=== PATIENT | female | born 1955 | race African-American/Black ===

== ENCOUNTER 2021-04-14 16:09 | Inpatient (IN) | payer MEDICARE, OTHER ==
[~2021-04-14] VITALS: Ht 157.5 cm; Wt 114.1 kg
[~2021-04-14 16:09] MED LIST: ALBU18HF2 IH; ASPI-1079 PO; ATOR10TA69 PO; BENA20TA10 PO; CHOL50006 PO; HCTZ; HYDR-519 PO; HYDR1TAB4 PO; HYDR25TA PO; LISI-186 PO; LORA-249 PO; LOSA50TA41 PO; NIFE60TA64 PO; OMEP20TA15 PO; TRAM50TA94 PO
[2021-04-14] MEDS ORDERED: SODIUM CHLORIDE 0.9% 1,000 ML IV ONE (19:00)
[2021-04-14] MEDS ORDERED: METOCLOPRAMIDE HCL 10MG/2ML VIAL IV ONE (19:15)
[2021-04-14] MEDS ORDERED: DIPHENHYDRAMINE 50MG/ML VIAL IV ONE (19:15)
[2021-04-14 19:22] LABS: BASOPHILS % 0.9 % (0.0-2.0); EOSINOPHILS % 1.4 % (0.0-5.0); HEMATOCRIT. 39.1 % (36.0-48.0); HEMOGLOBIN. 13.4 g/dL (12.0-16.0); LYMPHOCYTES % 42.2 % (20.0-50.0); MEAN CORPUSCULAR HEMOGLOBIN 30.3 pg (28.0-32.0); MEAN CORPUSCULAR VOLUME 88.4 fL (81.0-99.0); MEAN PLATELET VOLUME 7.9 fl (7.4-10.4); MONOCYTES % 10.4 % (2.0-8.0); NEUTROPHILS % 45.1 % (40.0-76.0); PLATELET 361 x1000/uL (130-400); RED BLOOD CELL COUNT 4.42 mill/uL (4.2-5.4); RED CELL DISTRIBUTION WIDTH 13.3 % (11.6-14.6)
[2021-04-14 19:30] LABS: CHLORIDE 92 mEq/L (98-107)
[2021-04-14] MEDS ORDERED: MAGNESIUM/ALUMINUM HYDROXIDE/SIMETHICONE 30ML UDC PO ONE (22:45)
[2021-04-14] MEDS ORDERED: KETOROLAC 15MG/ML VIAL IV ONE (22:45)
[2021-04-14] MEDS ORDERED: HYDRALAZINE 20MG/ML VIAL IV NR (23:45)
[2021-04-15 01:10] VITALS: BP 150/74
[2021-04-15 04:00] VITALS: BP 97/61
[2021-04-15 08:00] VITALS: BP 164/68
[2021-04-15] MEDS ORDERED: DOCUSATE SODIUM 100MG CAPSULE PO PRN (08:15)
[2021-04-15] MEDS ORDERED: IPRATROPIUM/ALBUTEROL 0.5-3(2.5)MG/3ML NEB HHN PRN (08:15)
[2021-04-15] MEDS ORDERED: HYDRALAZINE 20MG/ML VIAL IV PRN (08:15)
[2021-04-15] MEDS ORDERED: CLONIDINE 0.1MG TABLET PO PRN (08:15)
[2021-04-15] MEDS ORDERED: ONDANSETRON HCL 4MG/2ML INJ IV PRN (08:15)
[2021-04-15] MEDS ORDERED: DIPHENHYDRAMINE 50MG/ML VIAL IV PRN (08:15)
[2021-04-15] MEDS ORDERED: ACETAMINOPHEN 325MG TABLET PO PRN (08:15)
[2021-04-15] MEDS ORDERED: LORAZEPAM 2MG/ML CPJ IV PRN (08:15)
[2021-04-15] MEDS ORDERED: GUAIFENESIN 200MG/10ML SUGAR FREE UDC PO PRN (08:15)
[2021-04-15] MEDS ORDERED: NALOXONE HCL 0.4MG/ML VIAL IV PRN (08:30)
[2021-04-15] MEDS ORDERED: ENOXAPARIN 40MG/0.4ML SYR SUBCUT SCH (09:30)
[2021-04-15 12:00] VITALS: BP 157/79
[2021-04-15 12:25] LABS: CHLORIDE 93 mEq/L (98-107)
[2021-04-15] MEDS: MORPHINE SULFATE 2 MG/ML CPJ (NOT FOR IM USE) IV PRN (12:26)
[2021-04-15] MEDS ORDERED: LISINOPRIL 5MG TABLET PO SCH (13:00)
[2021-04-15] MEDS ORDERED: HYDROCHLOROTHIAZIDE 25MG TABLET PO SCH (13:00)
[2021-04-15] MEDS ORDERED: NIFEDIPINE XL 60MG TAB PO SCH (13:00)
[2021-04-15] MEDS ORDERED: BENAZEPRIL 10MG TABLET PO SCH (13:00)
[2021-04-15] MEDS ORDERED: LOSARTAN POTASSIUM 50 MG TABLET PO SCH (13:00)
[2021-04-15] MEDS ORDERED: ERGOCALCIFEROL 50000UNITS CAPSULE PO SCH (13:00)
[2021-04-15] MEDS: SODIUM CHLORIDE 0.45% 1,000 ML IV SCH (14:17)
[2021-04-15] MEDS: ASPIRIN 81MG TABLET PO SCH (14:25)
[2021-04-15] MEDS: SODIUM CHLORIDE 0.9% INJ 3ML FLUSH IVF SCH ×2 (14:25→21:30)
[2021-04-15] MEDS: OMEPRAZOLE 20MG CAPSULE EXTENDED RELEASE PO SCH (14:26)
[2021-04-15] MEDS: CHOLECALCIFEROL (D3) 1000 UNIT TABLET PO SCH (15:43)
[2021-04-15] MEDS ORDERED: AMLO10TA4 MT (15:46)
[2021-04-15 16:00] VITALS: BP 132/70
[2021-04-15 16:46] LABS: T4 FREE 1.19 ng/dL (0.76-1.46)
[2021-04-15 16:49] LABS: CREATINE KINASE MB FRACTION 1.2 ng/mL (0.5-3.6)
[2021-04-15] MEDS: HYDROCODONE/ACETAMINOPHEN 5/325MG TABLET PO PRN ×2 (17:25→21:30)
[2021-04-15 20:00] VITALS: BP 120/54
[2021-04-15] MEDS: MAGNESIUM/ALUMINUM HYDROXIDE/SIMETHICONE 30ML UDC PO PRN (21:28)
[2021-04-15] MEDS: ATORVASTATIN CALCIUM 10MG TABLET PO SCH (21:29)
[2021-04-15] MEDS: LOSARTAN POTASSIUM 50 MG TABLET PO SCH (21:29)
[2021-04-15] MEDS: ENOXAPARIN 40MG/0.4ML SYR SUBCUT SCH (21:30)
[2021-04-15 23:50] LABS: CREATINE KINASE 78 IU/L (26-192); CREATINE KINASE MB FRACTION < 1.0 ng/mL (0.5-3.6)
[2021-04-16] VITALS (7 sets, daily range): BP systolic 93–133; BP diastolic 51–89
[2021-04-16] MEDS: SODIUM CHLORIDE 0.9% INJ 3ML FLUSH IVF SCH ×3 (05:45→21:26)
[2021-04-16] MEDS: OMEPRAZOLE 20MG CAPSULE EXTENDED RELEASE PO SCH (06:34)
[2021-04-16 06:37] LABS: CHLORIDE 94 mEq/L (98-107)
[2021-04-16 06:56] LABS: BASOPHILS % 0.8 % (0.0-2.0); EOSINOPHILS % 1.3 % (0.0-5.0); HEMATOCRIT. 40.5 % (36.0-48.0); HEMOGLOBIN. 13.3 g/dL (12.0-16.0); LYMPHOCYTES % 45.7 % (20.0-50.0); MEAN CORPUSCULAR HEMOGLOBIN 30.1 pg (28.0-32.0); MEAN CORPUSCULAR VOLUME 91.6 fL (81.0-99.0); MEAN PLATELET VOLUME 9.2 fl (7.4-10.4); MONOCYTES % 10.5 % (2.0-8.0); NEUTROPHILS % 41.7 % (40.0-76.0); PLATELET 228 x1000/uL (130-400); RED BLOOD CELL COUNT 4.43 mill/uL (4.2-5.4); RED CELL DISTRIBUTION WIDTH 13.8 % (11.6-14.6)
[2021-04-16] MEDS: ENOXAPARIN 40MG/0.4ML SYR SUBCUT SCH (09:00)
[2021-04-16] MEDS: HYDROCHLOROTHIAZIDE 25MG TABLET PO SCH (09:00)
[2021-04-16] MEDS: HYDROCODONE/ACETAMINOPHEN 5/325MG TABLET PO PRN ×2 (09:17→21:25)
[2021-04-16] MEDS: LOSARTAN POTASSIUM 50 MG TABLET PO SCH ×2 (09:17→20:42)
[2021-04-16] MEDS: CHOLECALCIFEROL (D3) 1000 UNIT TABLET PO SCH (09:17)
[2021-04-16] MEDS: ASPIRIN 81MG TABLET PO SCH (09:17)
[2021-04-16] MEDS: SODIUM CHLORIDE 0.45% 1,000 ML IV SCH (09:18)
[2021-04-16] MEDS: MAGNESIUM/ALUMINUM HYDROXIDE/SIMETHICONE 30ML UDC PO PRN (17:13)
[2021-04-16] MEDS: ENOXAPARIN 30MG/0.3ML SYR SUBCUT SCH (20:42)
[2021-04-16] MEDS: FAMOTIDINE 20MG TABLET PO SCH (21:25)
[2021-04-16] MEDS: ATORVASTATIN CALCIUM 10MG TABLET PO SCH (21:25)
[2021-04-17] VITALS: BP 140/78
[2021-04-17] MEDS: HYDROCODONE/ACETAMINOPHEN 5/325MG TABLET PO PRN ×4 (01:48→22:15)
[2021-04-17 04:00] VITALS: BP 140/71
[2021-04-17] MEDS: SODIUM CHLORIDE 0.9% INJ 3ML FLUSH IVF SCH ×3 (06:18→21:00)
[2021-04-17] MEDS: SODIUM CHLORIDE 0.45% 1,000 ML IV SCH ×2 (06:18→20:52)
[2021-04-17] MEDS: MORPHINE SULFATE 2 MG/ML CPJ (NOT FOR IM USE) IV PRN ×2 (06:22→13:06)
[2021-04-17 06:42] LABS: EOSINOPHILS % 1.5 % (0.0-5.0); HEMATOCRIT. 36.3 % (36.0-48.0); HEMOGLOBIN. 12.4 g/dL (12.0-16.0); LYMPHOCYTES % 47.1 % (20.0-50.0); MEAN CORPUSCULAR HEMOGLOBIN 30.2 pg (28.0-32.0); MEAN CORPUSCULAR VOLUME 88.7 fL (81.0-99.0); MEAN PLATELET VOLUME 7.6 fl (7.4-10.4); NEUTROPHILS % 41.4 % (40.0-76.0); PLATELET 347 x1000/uL (130-400); RED CELL DISTRIBUTION WIDTH 13.5 % (11.6-14.6)
[2021-04-17 06:52] LABS: CHLORIDE 97 mEq/L (98-107)
[2021-04-17 08:00] VITALS: BP 163/86
[2021-04-17] MEDS: ENOXAPARIN 30MG/0.3ML SYR SUBCUT SCH ×2 (08:28→20:52)
[2021-04-17] MEDS: FAMOTIDINE 20MG TABLET PO SCH ×2 (08:29→20:52)
[2021-04-17] MEDS: ASPIRIN 81MG TABLET PO SCH (08:29)
[2021-04-17] MEDS: HYDROCHLOROTHIAZIDE 25MG TABLET PO SCH (08:29)
[2021-04-17] MEDS: CHOLECALCIFEROL (D3) 1000 UNIT TABLET PO SCH (08:29)
[2021-04-17] MEDS: LOSARTAN POTASSIUM 50 MG TABLET PO SCH ×2 (08:29→20:52)
[2021-04-17 12:00] VITALS: BP 149/79
[2021-04-17 16:00] VITALS: BP 124/69
[2021-04-17 20:38] VITALS: BP 138/80
[2021-04-17] MEDS: ATORVASTATIN CALCIUM 10MG TABLET PO SCH (20:52)
[2021-04-18] VITALS (7 sets, daily range): BP systolic 122–179; BP diastolic 58–93
[2021-04-18] MEDS: HYDROCODONE/ACETAMINOPHEN 5/325MG TABLET PO PRN (04:47)
[2021-04-18] MEDS: SODIUM CHLORIDE 0.9% INJ 3ML FLUSH IVF SCH (05:03)
[2021-04-18 05:35] LABS: BASOPHILS % 0.9 % (0.0-2.0); EOSINOPHILS % 2.3 % (0.0-5.0); HEMATOCRIT. 37.2 % (36.0-48.0); HEMOGLOBIN. 12.4 g/dL (12.0-16.0); LYMPHOCYTES % 51.3 % (20.0-50.0); MEAN CORPUSCULAR HEMOGLOBIN 29.9 pg (28.0-32.0); MEAN CORPUSCULAR VOLUME 89.9 fL (81.0-99.0); MEAN PLATELET VOLUME 7.7 fl (7.4-10.4); MONOCYTES % 11.9 % (2.0-8.0); NEUTROPHILS % 33.6 % (40.0-76.0); PLATELET 321 x1000/uL (130-400); RED BLOOD CELL COUNT 4.13 mill/uL (4.2-5.4); RED CELL DISTRIBUTION WIDTH 13.4 % (11.6-14.6)
[2021-04-18 06:24] LABS: CHLORIDE 96 mEq/L (98-107)
[2021-04-18] MEDS: ENOXAPARIN 30MG/0.3ML SYR SUBCUT SCH ×2 (09:00→20:23)
[2021-04-18] MEDS ORDERED: METOPROLOL TARTRATE 25MG TABLET PO SCH (09:00)
[2021-04-18] MEDS ORDERED: METOPROLOL TARTRATE 50MG TABLET PO SCH (09:00)
[2021-04-18] MEDS: MAGNESIUM/ALUMINUM HYDROXIDE/SIMETHICONE 30ML UDC PO PRN ×2 (10:13→20:39)
[2021-04-18] MEDS: HYDROCHLOROTHIAZIDE 25MG TABLET PO SCH (10:13)
[2021-04-18] MEDS: FAMOTIDINE 20MG TABLET PO SCH ×2 (10:14→20:22)
[2021-04-18] MEDS: LOSARTAN POTASSIUM 50 MG TABLET PO SCH ×2 (10:14→20:23)
[2021-04-18] MEDS: CHOLECALCIFEROL (D3) 1000 UNIT TABLET PO SCH (10:14)
[2021-04-18] MEDS: MORPHINE SULFATE 2 MG/ML CPJ (NOT FOR IM USE) IV PRN ×3 (10:15→20:35)
[2021-04-18] MEDS: ASPIRIN 81MG TABLET PO SCH (10:16)
[2021-04-18] MEDS ORDERED: NITROGLYCERIN SPRAY/4.9GM CAN TL ONE (10:45)
[2021-04-18] MEDS ORDERED: LIDOCAINE HCL 1% 30ML VIAL (10MG/ML) ONE (13:53)
[2021-04-18] MEDS ORDERED: IOHEXOL-350 100 ML BOTTLE ONE (15:20)
[2021-04-18] MEDS: ATORVASTATIN CALCIUM 10MG TABLET PO SCH (20:22)
[2021-04-18] MEDS: SODIUM CHLORIDE 0.45% 1,000 ML IV SCH (20:22)
[2021-04-18] MEDS: METOPROLOL TARTRATE 50MG TABLET PO SCH (20:23)
[2021-04-19] VITALS: BP 102/63
[2021-04-19] MEDS: MORPHINE SULFATE 2 MG/ML CPJ (NOT FOR IM USE) IV PRN (01:25)
[2021-04-19 04:00] VITALS: BP 158/76
[2021-04-19] MEDS: SODIUM CHLORIDE 0.9% INJ 3ML FLUSH IVF SCH (06:27)
[2021-04-19 08:04] VITALS: BP 157/70
[2021-04-19] MEDS: ENOXAPARIN 30MG/0.3ML SYR SUBCUT SCH (09:00)
[2021-04-19] MEDS: HYDROCHLOROTHIAZIDE 25MG TABLET PO SCH (09:17)
[2021-04-19] MEDS: LOSARTAN POTASSIUM 50 MG TABLET PO SCH (09:17)
[2021-04-19] MEDS: CHOLECALCIFEROL (D3) 1000 UNIT TABLET PO SCH (09:17)
[2021-04-19] MEDS: ASPIRIN 81MG TABLET PO SCH (09:17)
[2021-04-19] MEDS: FAMOTIDINE 20MG TABLET PO SCH (09:18)
[2021-04-19] MEDS: METOPROLOL TARTRATE 50MG TABLET PO SCH (09:19)
[2021-04-19] MEDS: HYDROCODONE/ACETAMINOPHEN 5/325MG TABLET PO PRN (09:31)
[2021-04-19 12:00] VITALS: BP 142/76
[2021-04-19 15:02] VITALS: BP 149/83
[2021-04-19 16:00] VITALS: BP 149/83
[2021-04-19] MEDS ORDERED: HYDRALAZINE HCL 50MG TABLET PO SCH (21:00)
== END 2021-04-19 18:15 | disposition home health service (06) | DRG 199 ==
LOC: ER 16:09 → 6WST 23:48 → ENRESERV 04-15 00:37
PROVIDERS: ADMIT Internal Medicine; ATTEND Internal Medicine
PROC: 02HV33Z Insertion of Infusion Device into Superior Vena Cava, Percutaneous Approach (ICD-10-PCS; principal; 2021-04-18)
PROC: B518ZZA Fluoroscopy of Superior Vena Cava, Guidance (ICD-10-PCS; 2021-04-18)
PROC: B548ZZA Ultrasonography of Superior Vena Cava, Guidance (ICD-10-PCS; 2021-04-18)
DX: I16.0 Hypertensive urgency (principal); E87.1 Hypo-osmolality and hyponatremia; I11.9 Hypertensive heart disease without heart failure; I95.9 Hypotension, unspecified; M94.0 Chondrocostal junction syndrome [Tietze]; R10.13 Epigastric pain; E66.01 Morbid (severe) obesity due to excess calories; E86.0 Dehydration; K21.9 Gastro-esophageal reflux disease without esophagitis; M17.11 Unilateral primary osteoarthritis, right knee; F41.9 Anxiety disorder, unspecified; Z20.822 Contact with and (suspected) exposure to COVID-19; R07.9 Chest pain, unspecified; E78.5 Hyperlipidemia, unspecified; G43.909 Migraine, unspecified, not intractable, without status migrainosus; M54.30 Sciatica, unspecified side; Z98.51 Tubal ligation status; Z68.42 Body mass index [BMI] 45.0-49.9, adult; Z79.899 Other long term (current) drug therapy; Z79.82 Long term (current) use of aspirin; R79.89 Other specified abnormal findings of blood chemistry; R77.8 Other specified abnormalities of plasma proteins
CPT/HCPCS: 36415; 36573; 71045; 75571; 76705; 80048; 80053; 80061; 82550; 82553; 83036; 83880; 84439; 84443; 84484; 85025; 85379; 87426; 93005; 93306; 97162; 99285; C1725; C1893; J0360; J1200; J1650; J1885; J2270; J2405; J2765; J3490; J7030; Q9967

== ENCOUNTER 2021-04-24 04:05 | Emergency (ER) | payer MEDICARE, OTHER ==
[~2021-04-24] VITALS: Ht 162.6 cm; Wt 100.0 kg
[~2021-04-24 04:05] MED LIST changes: +AMLO10TA4 MT
[2021-04-24] MEDS ORDERED: SODIUM CHLORIDE 0.9% 1,000 ML IV ONE (05:00)
[2021-04-24] MEDS ORDERED: MORPHINE SULFATE 4 MG/ML CPJ (NOT FOR IM USE) IV STA (05:00)
[2021-04-24] MEDS ORDERED: FAMOTIDINE 20MG/2ML VIAL IV STA (05:00)
[2021-04-24 05:46] LABS: HEMATOCRIT. 36.3 % (36.0-48.0); HEMOGLOBIN. 12.8 g/dL (12.0-16.0); MEAN CORPUSCULAR HEMOGLOBIN 30.4 pg (28.0-32.0); MEAN CORPUSCULAR VOLUME 86.5 fL (81.0-99.0); MEAN PLATELET VOLUME 7.4 fl (7.4-10.4); PLATELET 310 x1000/uL (130-400); RED CELL DISTRIBUTION WIDTH 13.1 % (11.6-14.6)
[2021-04-24 06:10] LABS: CHLORIDE 90 mEq/L (98-107)
[2021-04-24 07:58] LABS: PLATELET ESTIMATE NORMAL
[2021-04-24 07:59] LABS: CLARITY URINE CLEAR (CLEAR); COLOR URINE YELLOW (YELLOW); KETONES URINE NEGATIVE (NEGATIVE); LEUKOCYTE ESTERASE URINE NEGATIVE (NEGATIVE); NITRITE URINE NEGATIVE (NEGATIVE); OCCULT BLOOD URINE NEGATIVE (NEGATIVE); PROTEIN URINE NEGATIVE (NEGATIVE); SPECIFIC GRAVITY URINE 1.009 (1.005-1.030); UROBILINOGEN URINE 0.2 E.U./dL (0.2-1.0)
[2021-04-24 11:36] VITALS: BP 161/74
== END 2021-04-24 11:44 | disposition short-term general hospital (02) ==
LOC: ER 04:25
DX: R53.1 Weakness (principal); E87.1 Hypo-osmolality and hyponatremia; F41.9 Anxiety disorder, unspecified; I10 Essential (primary) hypertension; Z98.51 Tubal ligation status; Z79.899 Other long term (current) drug therapy
CPT/HCPCS: 36415; 76700; 80053; 81003; 83690; 84484; 85025; 93005; 96361; 96374; 96375; 99285; J2270; J3490; J7030

== ENCOUNTER 2022-01-09 13:16 | Emergency (ER) | payer MEDICARE, OTHER ==
[~2022-01-09] VITALS: Ht 167.6 cm; Wt 125.0 kg
[~2022-01-09 13:16] MED LIST changes: +BENA-8 PO; -BENA20TA10 PO
[2022-01-09] MEDS ORDERED: ASPIRIN 81MG TABLET PO ONE (13:45)
[2022-01-09] MEDS ORDERED: NITROGLYCERIN 0.4MG TABLET SL SL PRN (13:45)
[2022-01-09] MEDS ORDERED: NITROGLYCERIN OINT 1GM/INCH UDPKT TD ONE (13:45)
[2022-01-09 16:02] LABS: BASOPHILS % 0.7 % (0.0-2.0); EOSINOPHILS % 1.5 % (0.0-5.0); HEMATOCRIT. 38.3 % (36.0-48.0); HEMOGLOBIN. 12.6 g/dL (12.0-16.0); LYMPHOCYTES % 33.8 % (20.0-50.0); MEAN CORPUSCULAR HEMOGLOBIN 29.8 pg (28.0-32.0); MEAN CORPUSCULAR VOLUME 90.4 fL (81.0-99.0); MEAN PLATELET VOLUME 6.9 fl (7.4-10.4); MONOCYTES % 10.3 % (2.0-8.0); NEUTROPHILS % 53.7 % (40.0-76.0); PLATELET 326 x1000/uL (130-400); RED BLOOD CELL COUNT 4.24 mill/uL (4.2-5.4); RED CELL DISTRIBUTION WIDTH 13.9 % (11.6-14.6)
[2022-01-09 16:08] LABS: CHLORIDE 100 mEq/L (98-107)
[2022-01-09] MEDS ORDERED: NITROGLYCERIN OINT 1GM/INCH UDPKT TD NR (19:15)
[2022-01-09] MEDS ORDERED: ASPIRIN 81MG TABLET PO NR (19:15)
[2022-01-09] MEDS ORDERED: LABETALOL 5MG/ML SYR 20 MG/4 ML SYRINGE IV ONE (19:45)
[2022-01-09] MEDS ORDERED: IOHEXOL-350 100 ML BOTTLE ONE ×2 (20:30→20:54)
[2022-01-09 23:54] VITALS: BP 170/92
== END 2022-01-10 00:25 | disposition short-term general hospital (02) ==
LOC: ER 13:16 → CANBEDREQ 01-10 00:36
DX: I21.4 Non-ST elevation (NSTEMI) myocardial infarction (principal); R07.89 Other chest pain; I10 Essential (primary) hypertension; K21.9 Gastro-esophageal reflux disease without esophagitis; Z98.51 Tubal ligation status; Z79.899 Other long term (current) drug therapy; Z20.822 Contact with and (suspected) exposure to COVID-19
CPT/HCPCS: 36415; 71045; 71275; 80053; 83880; 84484; 85025; 85379; 87426; 93005; 93970; 93971; 96374; 99291; C9803; J3490; Q9967

== ENCOUNTER 2022-03-23 07:05 | Emergency (ER) | payer MEDICARE, OTHER ==
[~2022-03-23] VITALS: Ht 162.6 cm; Wt 115.0 kg
[2022-03-23 08:51] LABS: BASOPHILS % 1.3 % (0.0-2.0); HEMATOCRIT. 45.7 % (36.0-48.0); LYMPHOCYTES % 30.1 % (20.0-50.0); MEAN CORPUSCULAR VOLUME 91.3 fL (81.0-99.0); MONOCYTES % 10.7 % (2.0-8.0); NEUTROPHILS % 54.9 % (40.0-76.0); PLATELET 316 x1000/uL (130-400); RED BLOOD CELL COUNT 5.01 mill/uL (4.2-5.4)
[2022-03-23 09:00] LABS: CHLORIDE 105 mEq/L (98-107)
[2022-03-23] MEDS ORDERED: KETOROLAC 30MG/ML VIAL IM NR (09:15)
[2022-03-23 09:23] LABS: CLARITY URINE CLOUDY (CLEAR); COLOR URINE YELLOW (YELLOW); KETONES URINE 1+ (NEGATIVE); LEUKOCYTE ESTERASE URINE NEGATIVE (NEGATIVE); NITRITE URINE NEGATIVE (NEGATIVE); OCCULT BLOOD URINE NEGATIVE (NEGATIVE); PROTEIN URINE TRACE (NEGATIVE); SPECIFIC GRAVITY URINE 1.025 (1.005-1.030)
[2022-03-23 09:31] VITALS: BP 169/111
[2022-03-23] MEDS ORDERED: ACET-2708 MT (11:07)
== END 2022-03-23 11:22 | disposition home or self-care (01) ==
LOC: ER 07:05
DX: R07.89 Other chest pain (principal); R51.9 Headache, unspecified; E11.9 Type 2 diabetes mellitus without complications; I10 Essential (primary) hypertension; M19.90 Unspecified osteoarthritis, unspecified site; I48.91 Unspecified atrial fibrillation; D25.9 Leiomyoma of uterus, unspecified; Z79.01 Long term (current) use of anticoagulants
CPT/HCPCS: 36415; 71045; 80053; 81003; 83605; 83690; 84484; 85025; 93005; 96372; 99285; J1885

== ENCOUNTER 2023-10-08 22:21 | Emergency (ER) | payer MEDICARE, OTHER ==
[~2023-10-08] VITALS: Ht 170.2 cm; Wt 91.0 kg
[~2023-10-08 22:21] MED LIST changes: +ACET-2708 MT
[2023-10-08 22:24] VITALS: O2SAT 97
[2023-10-08] MEDS: MAGNESIUM/ALUMINUM HYDROXIDE/SIMETHICONE 30ML UDC PO STA (23:47)
[2023-10-09 00:11] LABS: BASOPHILS % 0.4 % (0.0-2.0); EOSINOPHILS % 1.3 % (0.0-5.0); HEMATOCRIT. 41.4 % (36.0-48.0); HEMOGLOBIN. 13.9 g/dL (12.0-16.0); LYMPHOCYTES % 26.2 % (20.0-50.0); MEAN CORPUSCULAR HEMOGLOBIN 30.6 pg (28.0-32.0); MEAN CORPUSCULAR HGB CONC 33.7 g/dL (31.0-37.0); MEAN CORPUSCULAR VOLUME 90.9 fL (81.0-99.0); MEAN PLATELET VOLUME 7.4 fl (7.4-10.4); MONOCYTES % 4.9 % (2.0-8.0); NEUTROPHILS % 67.2 % (40.0-76.0); PLATELET 351 x1000/uL (130-400); RED BLOOD CELL COUNT 4.55 mill/uL (4.2-5.4); RED CELL DISTRIBUTION WIDTH 13.8 % (11.6-14.6); WHITE BLOOD COUNT 8.2 x1000/uL (4.5-11.0)
[2023-10-09 00:33] LABS: ALANINE AMINOTRANSFERASE 12 IU/L (10-49); ALBUMIN 4.6 g/dL (3.2-4.8); ASPARTATE AMINOTRANSFERASE 17 IU/L (<34); BILIRUBIN TOTAL 0.4 mg/dL (0.1-1.0); CALCIUM 11.3 mg/dL (8.7-10.4); CARBON DIOXIDE 27 mEq/L (21-32); CHLORIDE 98 mEq/L (98-107); CREATININE 0.8 mg/dL (0.6-1.0); GLUCOSE 112 mg/dL (70-105); POTASSIUM 3.6 mEq/L (3.5-5.1); PROTEIN TOTAL 8.2 g/dL (6.0-8.3); SODIUM 132 mEq/L (136-145); UREA NITROGEN BLOOD 12 mg/dL (9-23)
[2023-10-09 00:48] LABS: LACTIC ACID 2.3 mmol/L (0.4-2.0)
[2023-10-09 01:33] VITALS: BP 119/68; PULSE 73; RESP 18
[2023-10-09 01:37] VITALS: TEMP 97.4
[2023-10-09] MEDS: ACETAMINOPHEN 325MG TABLET PO ONE (01:37)
== END 2023-10-09 01:34 | disposition home or self-care (01) ==
LOC: ER 22:21
DX: K59.00 Constipation, unspecified (principal); R10.9 Unspecified abdominal pain; K21.9 Gastro-esophageal reflux disease without esophagitis; I10 Essential (primary) hypertension; I20.9 Angina pectoris, unspecified; Z98.51 Tubal ligation status; Z79.899 Other long term (current) drug therapy
CPT/HCPCS: 36415; 80053; 83605; 85025; 99283